=== PATIENT | female | born 1955 | race Caucasian/White ===

== ENCOUNTER 2020-12-11 09:14 | Observation (INO) | payer MEDICARE, OTHER ==
[~2020-12-11] VITALS: Ht 167.6 cm; Wt 61.2 kg
[~2020-12-11 09:14] MED LIST: CALCIUM 500 +1 EAC3 PO; HYDROCHLOROTH12.5 MG PO; VIT C PO
[2020-12-11 10:09] LABS: HEMOGLOBIN 15.5 gm/dl (12.3-15.3); RED BLOOD COUNT 4.93 M/UL (4.00-5.10)
[2020-12-11 10:29] LABS: BUN/CREATININE RATIO 37 (0-10)
[2020-12-11] MEDS ORDERED: VITAMIN C500 M4 PO (22:25)
[2020-12-11] MEDS ORDERED: LUTEIN-ZEAXANT1 EACH PO (22:28)
[2020-12-11] MEDS ORDERED: ADVIL PM LIQUI1 EACH PO (22:29)
[2020-12-12 02:18] LABS: HEMOGLOBIN 14.1 gm/dl (12.3-15.3); RED BLOOD COUNT 4.57 M/UL (4.00-5.10)
[2020-12-12 02:29] LABS: WHITE BLOOD COUNT 7.2 K/UL (4.5-11.0)
[2020-12-12 02:41] LABS: BUN/CREATININE RATIO 34 (0-10)
--- NOTE | 2020-12-12 20:28 | NUR ---
IV REMOVED, VS, EDUCATION, PT LEFT THE FLOOR PER WHEELCHAIR AT 2024 IN STABLE CONDITION.
== END 2020-12-12 20:23 | disposition home or self-care (01) ==
LOC: ER1 09:14 → CDU 17:22 → M/S 17:22
PROVIDERS: Physician Assistant; ADMIT Internal Medicine
DX: R07.9 Chest pain, unspecified (principal); I10 Essential (primary) hypertension; Z87.891 Personal history of nicotine dependence; Z85.828 Personal history of other malignant neoplasm of skin; Z20.822 Contact with and (suspected) exposure to COVID-19; Z88.0 Allergy status to penicillin; Z79.899 Other long term (current) drug therapy
CPT/HCPCS: ECHO; 36415; 71045; 71275; 78452; 80048; 80053; 82550; 82553; 83605; 83690; 83874; 84484; 85025; 93005; 93017; 93306; 96374; 96375; 96376; 99285; A9502; G0378; J1885; J2270; J2405; J2785; J7040; Q9967; U0002

== ENCOUNTER 2021-05-27 10:05 | Emergency (ER) | payer MEDICARE ==
[~2021-05-27 10:05] MED LIST changes: +ADVIL PM LIQUI1 EACH PO; +LUTEIN-ZEAXANT1 EACH PO; +VITAMIN C500 M4 PO
[2021-05-27 11:42] LABS: BUN/CREATININE RATIO 29 (0-10)
[2021-05-27 12:57] LABS: HEMOGLOBIN 15.6 gm/dl (12.3-15.3); RED BLOOD COUNT 4.97 M/UL (4.00-5.10); WHITE BLOOD COUNT 6.6 K/UL (4.5-11.0)
== END 2021-05-27 21:40 | disposition short-term general hospital (02) ==
LOC: ER1 10:05
PROVIDERS: Emergency Medicine
DX: G45.9 Transient cerebral ischemic attack, unspecified (principal); I10 Essential (primary) hypertension; Z90.710 Acquired absence of both cervix and uterus; Z88.0 Allergy status to penicillin
CPT/HCPCS: 70450; 70496; 70498; 71045; 80053; 82550; 82553; 82962; 83874; 84484; 85025; 85610; 85730; 93005; 99285; J7040; Q9967

== ENCOUNTER → 2022-07-25 | Outpatient (CLI) | payer MEDICARE | LOC: KOH-I 11:35 | DX: M79.672 Pain in left foot (principal); M19.072 Primary osteoarthritis, left ankle and foot | CPT/HCPCS: 73630 ==

== ENCOUNTER → 2022-07-31 | Outpatient (CLI) | payer MEDICARE ==
[2022-07-31 11:23] LABS: HEMOGLOBIN 15.5 gm/dl (12.3-15.3); RED BLOOD COUNT 4.91 M/UL (4.00-5.10); WHITE BLOOD COUNT 5.3 K/UL (4.5-11.0)
[2022-07-31 11:50] LABS: BUN/CREATININE RATIO 26 (0-10)
== END ==
LOC: LAB 10:39 → CT 10:39
PROVIDERS: Physician Assistant
DX: R10.31 Right lower quadrant pain (principal)
CPT/HCPCS: 36415; 80048; 80076; 82150; 83690; 85025; Q9967

== ENCOUNTER → 2022-08-01 | Outpatient (CLI) | payer MEDICARE | LOC: KOH-I 10:04 | DX: M54.50 Low back pain, unspecified (principal); M51.36 Other intervertebral disc degeneration, lumbar region; M47.816 Spondylosis without myelopathy or radiculopathy, lumbar region | CPT/HCPCS: 72100 ==